=== PATIENT | male | born 1980 | race Caucasian/White ===

== ENCOUNTER 2017-03-09 15:13 | Emergency (ER) | payer MEDICAID ==
[2017-03-09 15:18] VITALS: TEMP 97.9
[2017-03-09] MEDS ORDERED: IBUPROFEN 600 MG TAB PO ONE (16:30)
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
[2017-03-09] MEDS ORDERED: LET GEL TOPICAL 1 EA SYR TP ONE (16:53)
[2017-03-09 18:25] VITALS: BP 112/84; PULSE 75; RESP 16; O2SAT 96
== END 2017-03-09 18:35 | disposition home or self-care (01) ==
PROC: 0HQBXZZ Repair Right Upper Arm Skin, External Approach (ICD-10-PCS; principal; 2017-03-09)
DX: S51.811A Laceration without foreign body of right forearm, initial encounter (principal); V18.0XXA Pedal cycle driver injured in noncollision transport accident in nontraffic accident, initial encounter; Y92.410 Unspecified street and highway as the place of occurrence of the external cause; Y99.8 Other external cause status; Y93.55 Activity, bike riding